=== PATIENT | female | born 1960 | race Caucasian/White ===

== ENCOUNTER 2023-12-28 11:27 | Emergency (ER) | payer OTHER ==
[~2023-12-28] VITALS: Ht 170.1 cm; Wt 70.3 kg
[2023-12-28] MEDS ORDERED: NAPROSYN500 MG PO (12:30)
== END 2023-12-28 12:43 | disposition home or self-care (01) ==
LOC: ED 11:27
DX: M70.22 Olecranon bursitis, left elbow (principal); Z88.5 Allergy status to narcotic agent; Z90.89 Acquired absence of other organs; Y93.89 Activity, other specified

== ENCOUNTER → 2025-01-21 | Outpatient (CLI) | payer OTHER ==
[~2025-01-21] MED LIST: NAPROSYN500 MG PO
== END | disposition home or self-care (01) ==
LOC: RAD 13:30
PROVIDERS: ATTEND Nurse Practitioner Family
DX: M47.816 Spondylosis without myelopathy or radiculopathy, lumbar region (principal); M16.12 Unilateral primary osteoarthritis, left hip; M85.88 Other specified disorders of bone density and structure, other site; M25.552 Pain in left hip